=== PATIENT | female | born 1960 | race Caucasian/White ===

== ENCOUNTER → 2018-05-22 | Outpatient (CLI) | payer OTHER ==
[~2018-05-22] MED LIST: ALBU90OI INH; Bactrim Ds Tab1 EACH PO; CEPH500 PO; CYCL10 PO; DULO30 PO; IBUP800 PO; OXYC5 PO; Percocet 5-3251 EACH PO; Prednisone10 MG PO; Pyridium100 MG PO
[2018-05-24 12:07] LABS: HPV 16 Negative (Negative); HPV 18 Positive (Negative); HPV OTHER HR TYPES Negative (Negative)
== END | disposition home or self-care (01) ==
LOC: LAB SHORT 10:53 → LAB 10:53
PROVIDERS: Obstetrics & Gynecology
DX: Z01.419 Encounter for gynecological examination (general) (routine) without abnormal findings (principal)
CPT/HCPCS: 87624; G0123

== ENCOUNTER → 2018-07-03 | Outpatient (CLI) | payer OTHER | END | disposition home or self-care (01) | LOC: LAB SHORT 07:35 → PLD 07:35 | DX: N72 Inflammatory disease of cervix uteri (principal); B97.7 Papillomavirus as the cause of diseases classified elsewhere; R87.810 Cervical high risk human papillomavirus (HPV) DNA test positive | CPT/HCPCS: 88305 ==

== ENCOUNTER → 2018-08-29 | Outpatient (CLI) | payer OTHER | END | disposition home or self-care (01) | LOC: LAB 17:05 → LAB SHORT 17:05 | DX: S60.551A Superficial foreign body of right hand, initial encounter (principal) | CPT/HCPCS: 87070; 87075; 87077; 87147; 87186; 87205 ==

== ENCOUNTER 2018-09-05 18:03 | Inpatient (IN) | payer OTHER ==
[~2018-09-05] VITALS: Ht 172.7 cm; Wt 67.2 kg
[2018-09-05 19:24] LABS: BASOPHILS ABSOLUTE AUTO 0.04 K/mm3 (0.00-0.23); BASOPHILS PERCENT AUTO 1 % (0-2); EOSINOPHILS PERCENT AUTO 2 % (0-6); Hematocrit 41.1 % (33.0-51.0); Hemoglobin 13.2 g/dL (11.5-16.0); IMMATURE GRAN ABSOLUTE AUTO 0.01 K/mm3 (0.00-0.10); IMMATURE GRAN PERCENT AUTO 0 % (0-1); LYMPHOCYTES ABSOLUTE AUTO 1.32 K/mm3 (0.84-5.20); LYMPHOCYTES PERCENT AUTO 22 % (21-46); MONOCYTES ABSOLUTE AUTO 0.65 K/mm3 (0.16-1.47); MONOCYTES PERCENT AUTO 11 % (4-13); Mean Corpuscular HGB 28.9 pg (26.0-34.0); Mean Corpuscular HGB Conc 32.1 g/dL (31.5-36.5); Mean Corpuscular Volume 90 fL (80-100); Mean Platelet Volume 10.3 fL (9.1-12.4); NEUTROPHILS ABSOLUTE AUTO 3.85 K/mm3 (1.96-9.15); NEUTROPHILS PERCENT AUTO 64 % (41-73); Platelet Count 229 K/mm3 (150-400); RDW Coefficient Variation 11.8 % (11.7-14.2); RDW Standard Deviation 39.1 fL (35.1-46.3); Red Blood Cell Count 4.56 M/mm3 (3.80-5.20); White Blood Cell Count 5.97 K/mm3 (4.00-11.30)
--- NOTE | 2018-09-05 19:25 | NUR ---
NEW DIRECT ADMIT PER DR. HERNANDEZ FOR RIGHT PINKY ABSCESS. PT ARRIVES AMBULATORY AND INDEPENDENT. IV WAS STARTED, LABS SENT. IV ABX INFUSING, MEDICATED FOR PAIN. EDUCATED RE MRSA AND BOOKLET GIVEN. PLAN FOR OR TOMORROW FOR I&D OF THE BASE OF THE PINKY FINGER.
[2018-09-05 19:44] LABS: Alanine Aminotransfer (ALT/SGP 49 U/L (12-78); Albumin, Blood 3.5 g/dL (3.4-5.0); Albumin/Globulin Ratio 0.9 (0.8-1.8); Alk Phos 77 U/L (50-136); Anion Gap 8 mmol/L (6-16); Aspartate Aminotrans (AST/SGOT 50 U/L (12-37); Bilirubin, Total 0.6 mg/dL (0.1-1.0); Blood Urea Nitrogen 8 mg/dL (8-24); Bun/Creatinine Ratio 11.4 (12.0-20.0); CO2, Blood 26 mmol/L (21-32); Calcium, Blood 8.8 mg/dL (8.5-10.1); Chloride, Blood 103 mmol/L (98-108); Globulin, Blood 3.8 g/dL (2.2-4.0); Glomerular Filtration Rate >60 (60-); Glucose, Blood 113 mg/dL (70-99); Potassium, Blood 3.2 mmol/L (3.5-5.5); Sodium, Blood 137 mmol/L (136-145); Total Protein, Blood 7.3 g/dL (6.4-8.2)
--- NOTE | 2018-09-06 04:42 | NUR ---
SHIFT SUMMARY NO ACUTE CHANGES THIS SHIFT. NO COMPLAINTS OF PAIN OR NAUSEA. VSS, O2 SATS >95% ON RA. BP TRENDING HYPERTENSIVE THIS SHIFT, STEADILY DECREASING, PT REMAINED ASYMPTOMATIC. PT IS ALERT AND ORIENTED, INDEPENDENT IN ROOM, VOIDING INDEPENDENTLY. SUTURES TO RIGHT HAND INCISION SITE ARE INTACT AND OPEN TO AIR. PT AWAITING I&D OF RIGHT HAND ABSCESS ON 09/06/18. WILL CONTINUE TO MONITOR.
--- NOTE | 2018-09-06 13:25 | NUR ---
History, Chart, Medications and Allergies reviewed before start of procedure. Patient confirms NPO status and agrees with scheduled surgery. Pre-Op teaching done. Pt verbalizes understanding.
--- NOTE | 2018-09-06 13:32 | NUR ---
PT TAKEN TO DAY SURGERY AT APPOXIMATELY 1300.
--- NOTE | 2018-09-06 17:24 | NUR ---
PT ARRIVED TO THE ROOM AT APPROXIMATELY 1645. PT ALERT AND ORENTED. SHE RATES PAIN AT 8/10, WAS PROVIDED WITH PAIN MEDICATIONS. VSS. PT TOLERATING CLEAR LIQUIDS AT THIS TIME, WILL ADVANCE TOLERATED. WILL CONTINUE TO MONITOR.
--- NOTE | 2018-09-06 17:44 | NUR ---
SHIFT SUMMARY PT HAD I&D WITH DR. KLEIN TODAY. PT ALERT AND ORIENTED POST-OP. PAIN MANAGED WITH PO PAIN MEDICATION. PT TOLERATING PO. VSS. WILL MONITOR UNTIL REPORT TO ONCOMING RN.
[2018-09-06 20:26] LABS: Vancomycin, Trough 15.9 ug/mL (5.0-10.0)
[2018-09-07 04:16] LABS: BASOPHILS ABSOLUTE AUTO 0.05 K/mm3 (0.00-0.23); BASOPHILS PERCENT AUTO 1 % (0-2); EOSINOPHILS ABSOLUTE AUTO 0.12 K/mm3 (0.00-0.68); EOSINOPHILS PERCENT AUTO 3 % (0-6); Hemoglobin 12.5 g/dL (11.5-16.0); IMMATURE GRAN PERCENT AUTO 0 % (0-1); LYMPHOCYTES ABSOLUTE AUTO 1.48 K/mm3 (0.84-5.20); LYMPHOCYTES PERCENT AUTO 31 % (21-46); MONOCYTES ABSOLUTE AUTO 0.58 K/mm3 (0.16-1.47); MONOCYTES PERCENT AUTO 12 % (4-13); Mean Corpuscular HGB 29.5 pg (26.0-34.0); Mean Corpuscular HGB Conc 32.1 g/dL (31.5-36.5); Mean Corpuscular Volume 92 fL (80-100); Mean Platelet Volume 10.5 fL (9.1-12.4); NEUTROPHILS ABSOLUTE AUTO 2.56 K/mm3 (1.96-9.15); NEUTROPHILS PERCENT AUTO 54 % (41-73); Platelet Count 206 K/mm3 (150-400); RDW Standard Deviation 40.5 fL (35.1-46.3); Red Blood Cell Count 4.24 M/mm3 (3.80-5.20); White Blood Cell Count 4.79 K/mm3 (4.00-11.30)
--- NOTE | 2018-09-07 06:00 | NUR ---
SHIFT SUMMARY LYING IN LOW FOWLERFS WITH EYES CLOSED. RESTED WELL, PAIN MANAGED. RIGHT HAND DRESSING IS C/D/I. DENIES FURTHER NEEDS OR WANTS AT THIS TIME. SAFETY MEASURES IN PLACE. WILL GIVE HAND OFF TO ONCOMING SHIFT USING SBAR.
--- NOTE | 2018-09-07 06:55 | NUR ---
RECVD REPORT FROM PREVIOUS RN KRISTEN, PT RESTING IN BED, CALL LIGHT WITHIN REACH, BED IN LOWEST POSITION, BED RAILS UP X 2
--- NOTE | 2018-09-07 18:48 | NUR ---
shift summary: vss, no acute changes. pt tolerated PO intake, some slight nausea, no vomiting, medicated per mar with no nausea. Urine output >550 ml clear yellow urine. pt ambulated outside x 3 this shift. pt showered herself with assistance from significant other. pt states pain controlled to 4-5/[address] yoon rounded on pt approx 1730, expected to have washout procedure tomorrow of the left hand pt remained a/0 x 4, pleasant/cooperative, displayed anxiety periodically t/o shift
--- NOTE | 2018-09-07 19:58 | NUR ---
ENTERED PT ROOM AT THIS TIME TO DO PT ASSESSMENT, PT IS OUT OF ROOM. WILL CTM
[2018-09-07 20:54] LABS: Vancomycin, Trough 20.6 ug/mL (5.0-10.0)
--- NOTE | 2018-09-08 06:08 | NUR ---
SUMMARY: PT IS POD2 I&D OF R HAND ABCESS. NO ACUTE CHANGE TONIGHT. VSS, A/O. PT INDEPENDENT IN ROOM. SURGICAL SITE WNL. ANTIBIOTICS INFUSED. PLAN IS FOR A RE PACKING OF WOUND TODAY. WILL CTM AND REPORT TO DAY RN
[2018-09-08 09:24] LABS: Vancomycin, Trough 16.1 ug/mL (5.0-10.0)
--- NOTE | 2018-09-08 19:18 | NUR ---
SUMMARY DRSG CHANGED PER TODAY. PAIN MANAGED WITH PO PAIN MEDICATION. PT IS TOLERATING PO INTAKE. BOWEL CARE PROVIDED. PT ENC TO AMBULATE IN HALLS, INCREASE FLUID INTAKE. CALL LIGHT IN REACH.
--- NOTE | 2018-09-09 05:09 | NUR ---
SHIFT SUMMARY PT RESTED WELL T/O NIGHT. AAOX4. DISCOMFORT CONTROLLED WITH 2 PAIN PILLS Q5P. NO NAUSEA/EMESIS. CK WRAP TO RUE C/D/I. MOVES FINGERS WELL, DENIES N/T, BRISK CAP REFILL. PT REPORTING RASH SCATTERED OVER BUE TO BE POISON OAK. PT OUT OF ROOM THIS SHIFT, SMOKING CESSATION ENCOURAGED. IV ABX PER ORDERS. PT RESTING WELL THIS AM. CALL LIGHT IN REACH.
--- NOTE | 2018-09-09 17:19 | NUR ---
SUMMARY ASSUMED CARE AT NOON. PT HAS BEEN STABLE. VSS. INDEPENDENT IN ROOM. FAMILY AT BEDSIDE. NO ACUTE CHANGES. DRSG C/D/I. PT C/O OF NEEDING TOHAVE A BM. BOWEL CARE OFFERED. CALL LIGHT IN REACH. REPORT GIVEN TO BIOTECHNICIAN.
--- NOTE | 2018-09-10 06:19 | NUR ---
SHIFT SUMMARY PT RESTED WELL T/O NIGHT. AAOX4. PAIN CONTROLLED WITH 2 PAIN PILLS X2 THIS SHIFT. NO NAUSEA/EMESIS. DRESSING TO RUE C/D/I. DENIES N/T, MOVES FINGERS WELL, BRISK CAP REFILL. INDEPENDENT IN ROOM + OUT OF ROOM TO AMBULATE MULTIPLE TIMES THIS SHIFT. CONTINUE IV ABX + ENCOURAGE SMOKING CESSATION. PT RESTING THIS AM. NO ACUTE CHANGES THIS SHIFT. CALL LIGHT IN REACH + PT USES FOR ASSISTANCE.
--- NOTE | 2018-09-10 07:45 | NUR ---
pt had lg emesis zofran given req to be unhooked
[2018-09-10 09:49] LABS: Vancomycin, Trough 11.2 ug/mL (5.0-10.0)
--- NOTE | 2018-09-10 10:28 | NUR ---
po mom given pt had enema earlier had small bm will also order power pudding alos gave pt prune juice
--- NOTE | 2018-09-10 12:30 | NUR ---
pt stated she had med sized soft bm
--- NOTE | 2018-09-10 15:19 | NUR ---
PT HAD ANOTHER BM ALSO HAVING SOME NAUSEA ZOFRAN GIVEN DR COELLO BY TO START ORAL BACTRIM PT WANTS TO WAIT UNTIL NAUSEA MED WORKS ALSO LET DR KLEIN KNOW DRESSING CHANGED EARLIER
[2018-09-10] MEDS ORDERED: DOCU100 PO (17:45)
[2018-09-10] MEDS ORDERED: Bactrim Ds Tab1 EACH PO (17:47)
[2018-09-10] MEDS ORDERED: IBU800 MG PO (17:49)
--- NOTE | 2018-09-10 18:20 | NUR ---
rx called into [facility] rx also given for po pain meds supplies given for dressing changes pt to have 1st dressing changed with dr yoon po bactrim given for tonights dose
== END 2018-09-10 18:40 | disposition home or self-care (01) | DRG 581 ==
LOC: SURS 18:03
PROVIDERS: Orthopaedic Surgery; ADMIT Orthopaedic Surgery
PROC: 0JBJ0ZZ Excision of Right Hand Subcutaneous Tissue and Fascia, Open Approach (ICD-10-PCS; principal; 2018-09-06 14:00)
DX: L03.011 Cellulitis of right finger (principal); B95.62 Methicillin resistant Staphylococcus aureus infection as the cause of diseases classified elsewhere; F17.210 Nicotine dependence, cigarettes, uncomplicated; B19.20 Unspecified viral hepatitis C without hepatic coma; J44.9 Chronic obstructive pulmonary disease, unspecified; M79.7 Fibromyalgia
CPT/HCPCS: 36415; 80053; 80202; 82565; 85025; 87070; 87075; 87077; 87147; 87186; 87205; 93005; 93010; J1650; J2250; J2405; J2543; J2704; J3010; J3370; J7030; J7040; J7120

== ENCOUNTER 2019-01-30 07:53 | Emergency (ER) | payer OTHER ==
[~2019-01-30] VITALS: Ht 177.8 cm; Wt 68.0 kg
[~2019-01-30 07:53] MED LIST changes: +DOCU100 PO; +IBU800 MG PO
[2019-01-30] MEDS ORDERED: Voltaren100 GM TOP (08:41)
[2019-01-30] MEDS ORDERED: Norco 5-325 Ta1 EACH PO (08:41)
[2019-01-30] MEDS ORDERED: PRED10 PO (08:41)
== END 2019-01-30 09:00 | disposition home or self-care (01) ==
LOC: ER 07:53
DX: M25.532 Pain in left wrist (principal); Z88.5 Allergy status to narcotic agent; Z79.52 Long term (current) use of systemic steroids; J44.9 Chronic obstructive pulmonary disease, unspecified; F17.210 Nicotine dependence, cigarettes, uncomplicated
CPT/HCPCS: 99283

== ENCOUNTER 2022-11-25 04:23 | Emergency (ER) | payer OTHER ==
[~2022-11-25] VITALS: Ht 177.8 cm; Wt 73.9 kg
[~2022-11-25 04:23] MED LIST changes: +Norco 5-325 Ta1 EACH PO; +PRED10 PO; +Voltaren100 GM TOP
[2022-11-25 05:45] LABS: Source, Urine Clean Catch
[2022-11-25 05:48] LABS: Appearance, Urine Clear (Clear); Bilirubin, Urine Neg (Neg); Blood, Urine Neg (Neg); Color, Urine Yellow (P-Yellow); Glucose Qualitative, Urine Neg (Neg); Ketones, Urine Neg (Neg); Leukocyte Esterase, Urine Neg (Neg); Nitrite, Urine Neg (Neg); Protein, Urine Neg (Neg); Specific Gravity, Urine 1.015 (1.003-1.022); Urobilinogen, Urine NORM (Normal)
[2022-11-25 06:15] LABS: BASOPHILS ABSOLUTE AUTO 0.04 K/mm3 (0.00-0.23); BASOPHILS PERCENT AUTO 1 % (0-2); EOSINOPHILS ABSOLUTE AUTO 0.11 K/mm3 (0.00-0.68); EOSINOPHILS PERCENT AUTO 2 % (0-6); Hemoglobin 13.9 g/dL (11.5-16.0); IMMATURE GRAN ABSOLUTE AUTO 0.02 K/mm3 (0.00-0.10); IMMATURE GRAN PERCENT AUTO 0 % (0-1); LYMPHOCYTES ABSOLUTE AUTO 1.16 K/mm3 (0.84-5.20); LYMPHOCYTES PERCENT AUTO 16 % (21-46); MONOCYTES ABSOLUTE AUTO 0.81 K/mm3 (0.16-1.47); MONOCYTES PERCENT AUTO 11 % (4-13); Mean Corpuscular HGB 28.9 pg (26.0-34.0); Mean Corpuscular HGB Conc 33.9 g/dL (31.5-36.5); Mean Corpuscular Volume 85 fL (80-100); Mean Platelet Volume 10.7 fL (9.1-12.4); NEUTROPHILS ABSOLUTE AUTO 5.33 K/mm3 (1.96-9.15); NEUTROPHILS PERCENT AUTO 71 % (41-73); Platelet Count 206 K/mm3 (150-400); RDW Standard Deviation 37.4 fL (35.1-46.3); Red Blood Cell Count 4.81 M/mm3 (3.80-5.20); White Blood Cell Count 7.47 K/mm3 (4.00-11.30)
[2022-11-25 06:55] LABS: Albumin, Blood 3.5 g/dL (3.4-5.0); Albumin/Globulin Ratio 0.9 (0.8-1.8); Bilirubin, Total 0.3 mg/dL (0.1-1.0); Bun/Creatinine Ratio 20.6 (12.0-20.0); Calcium, Blood 8.6 mg/dL (8.5-10.1); Creatinine, Blood 0.63 mg/dL (0.40-1.00); Globulin, Blood 3.9 g/dL (2.2-4.0); Potassium, Blood 3.6 mmol/L (3.5-5.5); Total Protein, Blood 7.4 g/dL (6.4-8.2)
[2022-11-25] MEDS ORDERED: ONDA4ODT MM (07:28)
[2022-11-25] MEDS ORDERED: HYDR1TAB94 PO (07:28)
[2022-11-25 07:30] VITALS: BP 185/92
== END 2022-11-25 07:43 | disposition home or self-care (01) ==
LOC: ER 04:23
PROVIDERS: Student in an Organized Health Care Education/Training Program
DX: K85.90 Acute pancreatitis without necrosis or infection, unspecified (principal); Z88.5 Allergy status to narcotic agent; Z79.52 Long term (current) use of systemic steroids; E78.5 Hyperlipidemia, unspecified; J44.9 Chronic obstructive pulmonary disease, unspecified; F17.210 Nicotine dependence, cigarettes, uncomplicated
CPT/HCPCS: 74177; 80053; 81003; 83690; 85025; 96374-59; 96375; 99284-25; J1885; J2405; Q9967

== ENCOUNTER → 2023-01-26 | Outpatient (CLI) | payer OTHER ==
[~2023-01-26] MED LIST changes: +HYDR1TAB94 PO; +ONDA4ODT MM
== END ==
LOC: LAB 14:40 → LAB SHORT 14:40
DX: D48.5 Neoplasm of uncertain behavior of skin (principal)
CPT/HCPCS: 88342

== ENCOUNTER 2023-05-27 11:46 | Emergency (ER) | payer OTHER ==
[~2023-05-27] VITALS: Ht 167.6 cm; Wt 75.3 kg
[~2023-05-27 11:46] MED LIST changes: -Toprol Xl25 MG PO
[2023-05-27] MEDS ORDERED: Diltiazem HCl 5 MG / ML 5ML Vial IV ONE (11:55)
[2023-05-27] MEDS ORDERED: Metoprolol Succinate 25 MG TABCR PO ONE (13:15)
[2023-05-27 14:00] VITALS: BP 118/84
[2023-05-27] MEDS ORDERED: Toprol Xl25 MG PO (14:26)
== END 2023-05-27 14:33 | disposition home or self-care (01) ==
LOC: ER 11:46
DX: I48.91 Unspecified atrial fibrillation (principal); J44.9 Chronic obstructive pulmonary disease, unspecified; E78.5 Hyperlipidemia, unspecified; G62.9 Polyneuropathy, unspecified; M79.7 Fibromyalgia; F17.210 Nicotine dependence, cigarettes, uncomplicated; Z79.52 Long term (current) use of systemic steroids; Z79.899 Other long term (current) drug therapy; Z88.5 Allergy status to narcotic agent
CPT/HCPCS: 71045; 84443; 93005; 93010; 99285-25; A9270

== ENCOUNTER → 2023-05-27 | Outpatient (CLI) | payer OTHER ==
[~2023-05-27] MED LIST changes: +Toprol Xl25 MG PO
[2023-05-27 10:57] LABS: BASOPHILS ABSOLUTE AUTO 0.04 K/mm3 (0.00-0.23); BASOPHILS PERCENT AUTO 0 % (0-2); EOSINOPHILS ABSOLUTE AUTO 0.06 K/mm3 (0.00-0.68); EOSINOPHILS PERCENT AUTO 1 % (0-6); Hematocrit 43.4 % (33.0-51.0); Hemoglobin 14.3 g/dL (11.5-16.0); IMMATURE GRAN ABSOLUTE AUTO 0.03 K/mm3 (0.00-0.10); IMMATURE GRAN PERCENT AUTO 0 % (0-1); LYMPHOCYTES ABSOLUTE AUTO 1.84 K/mm3 (0.84-5.20); LYMPHOCYTES PERCENT AUTO 18 % (21-46); MONOCYTES ABSOLUTE AUTO 1.49 K/mm3 (0.16-1.47); MONOCYTES PERCENT AUTO 15 % (4-13); Mean Corpuscular HGB 28.8 pg (26.0-34.0); Mean Corpuscular HGB Conc 32.9 g/dL (31.5-36.5); Mean Corpuscular Volume 88 fL (80-100); Mean Platelet Volume 9.8 fL (9.1-12.4); NEUTROPHILS PERCENT AUTO 66 % (41-73); Platelet Count 259 K/mm3 (150-400); RDW Coefficient Variation 12.4 % (11.7-14.2); RDW Standard Deviation 39.3 fL (35.1-46.3); Red Blood Cell Count 4.96 M/mm3 (3.80-5.20); White Blood Cell Count 10.26 K/mm3 (4.00-11.30)
[2023-05-27 11:09] LABS: Albumin, Blood 3.3 g/dL (3.4-5.0); Albumin/Globulin Ratio 0.8 (0.8-1.8); Bilirubin, Total 0.6 mg/dL (0.1-1.0); Bun/Creatinine Ratio 15.4 (12.0-20.0); Calcium, Blood 8.7 mg/dL (8.5-10.1); Creatinine, Blood 0.78 mg/dL (0.40-1.00); Globulin, Blood 4.2 g/dL (2.2-4.0); Potassium, Blood 3.8 mmol/L (3.5-5.5); Total Protein, Blood 7.5 g/dL (6.4-8.2)
== END | disposition home or self-care (01) ==
LOC: LAB SHORT 10:52
PROVIDERS: Physician Assistant
DX: R07.9 Chest pain, unspecified (principal)
CPT/HCPCS: 80053; 84484; 85025